=== PATIENT | male | born 1990 | race Hispanic/Latino ===

== ENCOUNTER 2017-09-07 18:42 | Emergency (ER) | payer OTHER ==
[2017-09-07] MEDS ORDERED: ORPHENADRINE CITRATE 30 MG/ML ML ONE (19:27)
[2017-09-07] MEDS ORDERED: KETOROLAC TROMETHAMINE 60 MG/2 ML VIAL ONE (19:28)
== END 2017-09-07 20:25 | disposition home or self-care (01) ==
LOC: EDH 18:42
DX: S13.4XXA Sprain of ligaments of cervical spine, initial encounter (principal); V49.49XA Driver injured in collision with other motor vehicles in traffic accident, initial encounter; Y93.89 Activity, other specified; Y92.89 Other specified places as the place of occurrence of the external cause; Y99.8 Other external cause status
CPT/HCPCS: 96372 ×2; 99284; J1885; J2360